=== PATIENT | female | born 1930 | race Caucasian/White ===

== ENCOUNTER 2017-10-23 07:07 | Inpatient (IN) | payer MEDICARE ==
[~2017-10-23] VITALS: Ht 162.6 cm; Wt 94.8 kg
[2017-10-23] VITALS (29 sets, daily range): BP systolic 59–129; BP diastolic 33–63
[~2017-10-23 07:07] MED LIST: ACETAMINOPHEN325 M1 PO; ALBUTEROL2.5 MG/0.5 INH; ALBUTEROL2.5 MG/3 M INH; ALEVE220 MG PO; ALPRAZOLAM; ARTIFICIAL TEAR15 ML OPHTHALMIC; ASPIRIN EC81 M1; ASPIRIN325 PO; BAYER CHEWABLE81 MG PO; BIOFREEZE118 ML TOP; CALCIUM 600 +1 EAC1 PO; CALCIUM 600 +1 EAC9 PO; CARDIZEM CD120 MG PO; CARDIZEM CD180 MG PO; CEFUROXIME250 MG PO; CLEOCIN HCL150 MG PO; COLACE 100 MG100 MG PO; COLACE100 MG PO; CRESTOR10 MG PO; DOXYCYCLINE 10100 MG PO; ENOXAPARIN40 MG/0.1 SUBQ; EUCERIN ORIGIN250 ML TOP; FENTANYL PA25 MCG/HR TRANSDERM; FISH OIL 1,0001 EAC8 PO; FISH OIL 1,001000 M2 PO; FISHOIL; GABAPENTIN 100100 MG PO; GLUCOPHAGE XR500 MG PO; GLUCOPHAGE500 MG PO; GUAIFENESIN-DM S5 ML PO; HYDROCERIN CREA1 JAR TOP; HYDROCODON-ACE1 EAC7 PO; HYDROCODONE-AP1 EAC6 PO; IPRAT-ALBUT 0.5-3 ML INH; JUVEN PACKET1 EACH PO; KLOR-CON 1010 MEQ; LASIX 20 MG TAB20 MG; LEVAQUIN 500 M500 M2 PO; LIDODERM 5%1 PATC1 TRANSDERM; LINZESS145 MCG PO; MACROBID 100 M100 M2 PO; MILK OF MA2400 MG/10 PO; MIRALAX255 GM PO; MOBIC15 MG; MUCINEX TA600 MG/TA2 PO; NEURONTIN 300300 M1 PO; NEURONTIN100 MG PO; NORCO 5-325 TA1 EACH PO; NYAMYC15 GM TOP; NYSTATIN 100,0015 G1 TOP; NYSTATIN 1100000 U/M TOP; ONE DAILY WOME1 EAC3 PO; OSELB75 PO; PERCOCET; POTASSIUM20 PO; PREDNISOLONE 5 M5 M1 PO; PREDNISONE 20 M20 MG PO; PREDNISONE 5 MG5 M1 PO; PREDNISONE 5 MG5 MG PO; PROAIR HFA8.5 GM INH; PROTONIX40 M1 PO; PROTONIX40 M2 PO; RISAMINE OINTM113 GM TOP; ROBAFEN DM COU118 ML PO; ROBITUSSIN100 MG/53 PO; SENNA8.6 MG PO; SENOKOT-S1 TA1 PO; SERTRALINE HCL50 MG PO; SKELAXIN 800 M800 M1 PO; TESSALON PERLE100 M1 PO; THERA-M CAPLET1 EAC1 PO; THERAGRAN-M PR1 EAC1 PO; TRAZODONE 150150 M1 PO; TRAZODONE HCL50 MG PO; Trazodone PO; ULTRAM 50MG TAB50 MG PO; VENTOLIN HFA 1818 GM INH; VICODIN 5-3001 EACH PO; VICODIN 5-5001 EACH PO; VITAMIN D-32000 UNI1 PO; VITAMINC500 PO; XANAX 0.25 MG0.25 MG PO; XARELTO10 M1 PO; ZOLOFT25 MG PO
[2017-10-23 07:37] LABS: POC CA IONIZED 4.4 mg/dL (4.5-5.3); POC CREATININE 2.6 mg/dL (0.6-1.3); POC HEMOGLOBIN 16.3 g/dL (12.0-17.0)
[2017-10-23 07:37] LABS: HEMATOCRIT 49.1 % (37.0-47.0); HEMOGLOBIN 15.5 gm/dL (12.0-15.0); MCH 28.7 pg (26.0-34.0); MCHC 31.5 g/dL (28.0-37.0); MCV 91.2 fL (80.0-100.0); MPV 8.2 fl. (7.2-11.1); RBC 5.38 mil/uL (4.20-5.00); RDW-CV 15.7 % (10.5-14.5); WBC 38.5 thou/uL (4.0-11.0)
[2017-10-23 07:47] LABS: APTT 34.8 Seconds (25.0-31.3); INR 1.3; PROTIME 12.7 Seconds (9.20-11.50)
[2017-10-23 08:01] LABS: CALCIUM 9.1 mg/dL (8.5-10.1); CREATININE 3.3 mg/dL (0.6-1.3); POTASSIUM 3.9 mmol/L (3.5-5.1)
[2017-10-23 08:06] LABS: ALBUMIN 2.8 g/dL (3.4-5.0); TOTAL BILIRUBIN 0.5 mg/dL (<0.1-1.0); TOTAL PROTEIN 7.2 g/dL (6.4-8.2)
[2017-10-23 08:10] LABS: URINE BLOOD 3+ (Negative); URINE CLARITY CLEAR; URINE COLOR YELLOW; URINE GLUCOSE-RANDOM NEGATIVE (Negative); URINE KETONES NEGATIVE (Negative); URINE LEUKOCYTES 3+ (Negative); URINE NITRITE NEGATIVE (Negative); URINE PROTEIN 2+ (Negative); URINE UROBILINOGEN 0.2 E.U./dl (0.2-1.0)
[2017-10-23 08:15] LABS: URINE BILIRUBIN 1+ (Negative)
[2017-10-23 08:16] LABS: ICTOTEST (BILI CONFIRMATORY) Negative (Negative)
[2017-10-23 08:22] LABS: SQUAMOUS 0-3 Few /LPF (0-3)
[2017-10-23 08:23] LABS: BACTERIA >30 Many /HPF (None Seen); CASTS None Seen /LPF (None Seen); CRYSTALS None Seen /LPF (None Seen); MUCUS None Seen strn/LPF (None Seen); URINE RBC >20 Many /HPF (0-2); URINE WBC >25 Many /HPF (0-5)
[2017-10-23 08:27] LABS: PCO2 23.8 mmHg (35.0-45.0); PO2 94.2 mmHg (75.0-100.0); pH 7.322 (7.340-7.450)
[2017-10-23 08:30] LABS: MAGNESIUM 1.6 mg/dL (1.8-2.4); PHOSPHORUS* 4.1 mg/dL (2.5-4.9)
[2017-10-23] MEDS ORDERED: NORCO 5-325 TA1 EACH PO (09:26)
[2017-10-23] MEDS ORDERED: ARTIFICIAL TEA1 EACH OPHTHALMIC (09:30)
[2017-10-23] MEDS ORDERED: THERA-M1 EAC1 PO (09:31)
[2017-10-23] MEDS ORDERED: BUSPIRONE HCL10 MG PO (09:32)
[2017-10-23] MEDS ORDERED: ZOLOFT25 MG PO (09:33)
[2017-10-23] MEDS ORDERED: AMITIZA8 MCG PO (09:33)
--- NOTE | 2017-10-23 10:03 | EKG ---
[place] [address] ELECTROCARDIOGRAM REPORT Name: VIJAYA HELMS Room: [place] [address] ADM IN .R.#: [id number] Admission: 10/23/17 Attend Phys: Bryon Martinez MD Discharge: Date of : [birth year] Report #: [id number] THIS REPORT FOR: //name// [facility] Test Date: 2017-10-23 Test Time: 08:06:17 Pat Name: VIJAYA HELMS Department: Room: [facility] Gender: F Hearing Aid Technician: SCOTT : [id number] Requested By: Valerio Healy Order Number: [id number] MD: Tate Huerta Measurements Intervals [place] Rate: 122 P: 53 LA: 138 QRS: 64 QRSD: 81 T: 84 QT: 304 QTc: 433 Interpretive Statements Sinus tachycardia nonspecific st changes Baseline wander in lead(s) V6 Compared to ECG 06/10/2017 11:06:23 Sinus rhythm no longer present Electronically Signed On 10-23-2017 10:02:48 BALLPOINT PEN ASSEMBLY MACHINE OPERATOR by Tate Huerta [email or web address] <ELECTRONICALLY SIGNED> By: Tate Huerta MD, [facility] 10/23/17 1002 08 08 Tate Huerta MD, [facility] /EPI
--- NOTE | 2017-10-23 10:43 | NUR ---
VANCOMYCIN PHARMACY TO MANAGE: PATIENT IS BEING TREATED FOR SEPSIS. WBC=38.5, SCR=3.3, CRCL (ACTUAL)= 15.9, TEMP= 36.4. PER PROTOCOL PATIENT WILL RECEIVE A LOADING DOSE OF VANCOMYCIN 1.75 G IV ONETIME FOLLOWED BY A MAINTENANCE DOSE OF VANCOMYCIN 500 MG IV DAILY WITH A TROUGH GOAL OF 15-20 MCG/ML. A TROUGH IS ORDERED FOR 10/26 AT 1100. PHARMACY WILL CONTINUE TO FOLLOW AND MONITOR.
[2017-10-23 11:11] LABS: AMYLASE 333 U/L (25-115); LIPASE 169 U/L (73-393)
--- NOTE | 2017-10-23 16:39 | NUR ---
PATIENT ADMITTED FROM ER. PATIENT IMPROVED MENTATION AND SPEECH DURING SHIFT. SPEECH EVAL ORDERED SO PATIENT CAN BE EVALUATED FOR SWALLOWING. PATIENT ON LEVOPHED AND SEPTIC SHOCK PROTOCOL. PATIENT TACHYCARDIC AND TACHYPNEIC. VELEZ CATHETER IN PLACE, DARK URINE NOTED. UTI NOTED ON UA. DECAL MAKER IN PLACE, SINUS TACHYCARDIA WITH FREQUENT PVC'S NOTED. BEDSIDE REPORT TO BE GIVEN TO ONCOMING SHIFT.
[2017-10-24] VITALS (27 sets, daily range): BP systolic 113–142; BP diastolic 46–73
[2017-10-24 03:07] LABS: INR 1.4; PROTIME 13.4 Seconds (9.20-11.50)
[2017-10-24 03:22] LABS: HEMATOCRIT 41.8 % (37.0-47.0); MCH 28.6 pg (26.0-34.0); MCHC 31.9 g/dL (28.0-37.0); MCV 89.6 fL (80.0-100.0); MPV 8.8 fl. (7.2-11.1); NUCLEATED RBCS 0 /100WBC; PLATELET COUNT* 134 thou/uL (150-400); RBC 4.66 mil/uL (4.20-5.00); RDW-CV 15.4 % (10.5-14.5)
[2017-10-24 03:23] LABS: HEMOGLOBIN 13.3 gm/dL (12.0-15.0)
[2017-10-24 03:24] LABS: WBC 40.8 thou/uL (4.0-11.0)
[2017-10-24 03:31] LABS: CREATININE 2.8 mg/dL (0.6-1.3); MAGNESIUM 1.9 mg/dL (1.8-2.4); PHOSPHORUS* 6.1 mg/dL (2.5-4.9); POTASSIUM 4.2 mmol/L (3.5-5.1)
[2017-10-24 03:40] LABS: CALCIUM 6.2 mg/dL (8.5-10.1)
[2017-10-24 04:18] LABS: ABSOLUTE EOSINOPHILS 0.4 thou/uL (0.0-0.7); ABSOLUTE LYMPHOCYTES 1.6 thou/uL (0.8-5.3); ABSOLUTE MONOCYTES 1.2 thou/uL (0.0-1.2); ABSOLUTE NEUTROPHILS 37.5 thou/uL (1.6-8.1); ANISOCYTOSIS Occasional; METAMYELOCYTES 2 %; PLATELET ESTIMATE DECREASED
[2017-10-24 04:19] LABS: TOXIC GRANULATION 1+
--- NOTE | 2017-10-24 05:34 | NUR ---
PT IS ABLE TO COMMUNICATE HER NEEDS TO STAFF WITH SOME DIFFICULTY; SHE HAS BEEN DROWSEY AND HAS SOME RIGHT SIDED FACIAL DROOP WELL SLURRED SPEECH. SHE HAS BEEN FOLLOWING COMMANDS UP TO THIS TIME; GCS=14. LEVOPHED DRIP TITRATED DOWN OVERNIGHT, BUT STILL RUNNING AT THIS TIME. VELEZ PATENT; ACCEPTABLE OUTPUT SO FAR.
--- NOTE | 2017-10-24 08:54 | CON ---
[address] [address] CONSULTATION Name: VIJYAA HELMS Bianca Room: [address] ADM IN M.R.#: [id number] Admission: 10/23/17 Attend Phys: Bryon Martinez MD Discharge: Date of : 08/[birth year] Report #: [id number] THIS REPORT FOR: //name// CC: Bryon Hennessy DATE OF SERVICE: 10/23/2017 ATTENDING PHYSICIAN: Dr. Martinez. REASON FOR EVALUATION: Septic shock, probable complicated genitourinary tract infection. HISTORY OF PRESENT ILLNESS: Chart reviewed, patient examined. This is an 87-year-old, extensive medical history, I am very familiar with. She was hospitalized in May of this year, was readmitted from the [place] [facility] with mental status changes, was evaluated and was found to have marked pyuria, probable urinary tract infection, perhaps pneumonitis as well. She was transitioned to the Intensive Care Unit. It is notable she had a marked lactic acidemia of 14.4, renal failure, markedly elevated white count of 38.5. She has been febrile, currently on pressor support. She is empirically started on combination of antimicrobials with vancomycin, metronidazole, meropenem. ALLERGIES: LISTED PENICILLIN, SULFA, CEPHALOSPORINS, QUINOLONES. MEDICATIONS: Include vancomycin, meropenem, methylprednisolone, metronidazole, norepinephrine. PAST MEDICAL HISTORY: Extensive including known vasculopathy, coronary artery disease, asthma, hypertension, renal lithiasis with lithotripsies, rheumatic fever at the age of 11, multiple surgeries including hernia, tonsillectomy, colectomy, cholecystectomy, hysterectomy and some infectious complications including pneumonitis, urinary tract infections. SOCIAL HISTORY: She is disabled, [place] [facility] resident, nonsmoker, no ethanol. FAMILY HISTORY: Noncontributory. REVIEW OF SYSTEMS: Not obtainable. PHYSICAL EXAMINATION: GENERAL: She appears quite ill, ilkld-sb-gfuqxel, undernourished. It is unclear that she has any ability to track conversation and exactly where she is at. VITAL SIGNS: Temperature 100.9, pulse 116, respirations 33, blood pressure 103/44 [place] [address] CONSULTATION Name: VIJAYA HELMS Room: [address] IN [facility]#: [id number] Admission: 10/23/17 Attend Phys: Bryon Martinez MD Discharge: Date of : 08/[birth year] Report #: [id number] SKIN: Warm, dry, no rashes. HEENT: Unremarkable. NECK: Supple. LUNGS: Scattered coarse breath sounds. HEART: Tachycardic, regular, may have a soft systolic murmur. ABDOMEN: Soft. There are no apparent peritoneal signs. GENITOURINARY AND RECTAL: Deferred. LABORATORY DATA: Renal ultrasound showed no hydronephrosis or obstruction. Lactic acid serially 14.4, 9.8 and 9.1. Amylase 333 with upper limits normal being 115, lipase of 169. Chest x-ray: Prominent interstitial changes throughout both lungs. ABGs: A pH 7.322, pCO2 of 23.8, pO2 of 94.2 on 15 liters nonrebreather. Urinalysis: Greater than 25 white cells, greater than 30 bacteria. Cultures are pending on the blood and urine. CTA head: Chronic age-related changes similar to previous. No definite acute intracranial process. White count of 38.5, H and H 15.5 and 49.1, platelets of 169. ASSESSMENT: Septic shock, setting of a [place] [facility], likely secondary to genitourinary tract source, can exclude a concomitant pneumonitis as well. We will continue broad spectrum therapy and again this regimen is based in part on likely organisms as well as multiple drug hypersensitivities. At this point, she is quite tenuous although apparently is not to be intubated or resuscitated. See how she does clinically with the current approach. She has certainly had significant guarded prognosis. <ELECTRONICALLY SIGNED> By: Rhys Hill MD 10/24/17 0854 1519 [id number] Hill MD /nt
--- NOTE | 2017-10-24 10:15 | NUR ---
PT ADMITTED TO ICU YESTERDAY. DAUGHTER ANTONY NOT IN THE ROOM AT THIS TIME, I SPOKE WITH DTR YESTERDAY AT TIME OF ADMISSION. DTR TEARFUL, STATING SHE ISN'T SURE WHAT SHE SHOULD DO. 'MY MOTHER IS READY TO , SHE DOESN'T HAVE MUCH OF A QUALITY OF LIFE.' CONFIRMED WITH DTR THAT PT IS A DNR, DTR CONFLICTED ABOUT WHETHER SHE SHOULD HAVE LET THE DOCTOR START THE PRESSORS, 'MAYBE I SHOULD JUST LET HER GO.' AFTER DISCUSSION WITH DTR, SHE HAS DECIDED THAT SHE WANTS TO CONTINUE CURRENT TREATMENT FOR NOW, SEE HOW PT RESPONDS, AND THEN MAKE FURTHER DECISIONS ABOUT WHAT SHE WANTS DONE OR DOESN'T WANT DONE. DTR IS REALISTIC ABOUT PT'S CONDITION. DTR HAS MY CONTACT INFORMATION, CASE MGT WILL CONTINUE TO FOLLOW.
--- NOTE | 2017-10-24 10:37 | CON ---
[address] [address] CONSULTATION Name: VIJAYA HELMS Bianca Room: [address] IN M.R.#: [id number] Admission: 10/23/17 Attend Phys: Bryon Martinez MD Discharge: Date of : [birth year] Report #: [id number] THIS REPORT FOR: //name// CC: Bryon Martinez MD Boy Hennessy DATE OF SERVICE: 10/23/2017 REQUESTING PHYSICIAN: Bryon Martinez MD REASON FOR CONSULTATION: Acute renal failure. HISTORY OF PRESENT ILLNESS: The patient is an 87-year-old woman who presented to the emergency room from correction with altered mental status, she was hypotensive, has been deemed probably septic, was moved to the intensive care unit, started on pressors and given IV fluid resuscitation, her creatinine was elevated over 3, so we were asked to see her in consultation. The patient provides no meaningful history to me, history is from review of the emergency room runner. PAST MEDICAL HISTORY: Known to be significant for coronary artery disease, bypass surgery, she has had cervical neck fracture, she has had lithotripsies in the past, rheumatic fever as a child, hernia repair, hyperlipidemia and previous hip fracture in 2013. MEDICATIONS AT HOME: Include hydrocodone, acetaminophen, fentanyl patch, aspirin, albuterol, multivitamins, nystatin, prednisone 5 mg daily, magnesium hydroxide, lanolin, menthol, trazodone, gabapentin, Dendron, Zoloft, diltiazem, Amitiza, and Senna. FAMILY HISTORY: Noncontributory. SOCIAL HISTORY: Not available. REVIEW OF SYSTEMS: Unobtainable. PHYSICAL EXAMINATION: VITAL SIGNS: Temperature is 36.4, pulse 118, respirations 24, and blood pressure 76/37. GENERAL: This is an elderly white female, minimally responsive to me, in no acute distress, lying in the intensive care unit on nasal oxygen flat on her back. HEAD, EYES, EARS, NOSE, AND THROAT: Normocephalic. Sclerae are nonicteric. NECK: No JVD is noted. HEART: Regular rhythm and rate about 100[place] [address] CONSULTATION Name: VIJAYA HELMS Room: [address] IN [facility].#: [id number] Admission: 10/23/17 Attend Phys: Bryon Martinez MD Discharge: Date of : [birth year] Report #: [id number] LUNGS: Clear anteriorly. ABDOMEN: Soft, rotund, bowel sounds are present. Tender to palpation throughout, but no apparent rebound or guarding. She has a Blair catheter in place with bloody thick urine. EXTREMITIES: Show no peripheral edema. SKIN: Turgor is diminished. LABORATORY DATA: Reviewed, noted white count 38.5, hemoglobin 15.5, and platelet count 169,000. Sodium 146, potassium 3.9, chloride 103, CO2 of 18, BUN 32, creatinine 3.3, and albumin is 2.8. IMPRESSION AND PLAN: Acute renal failure in the setting of hypotension and probable sepsis. We will fluid resuscitate her more aggressively. Continue pressor support. If she does take steroids chronically, I would favor putting her on IV Solu-Medrol here as well. We will monitor her progress with followup chemistries later this afternoon and again in the morning. Depending on her course, she may require acute dialysis she is a do not intubate, do not resuscitate status, I do not know about other aggressive medical interventions in this 87-year-old woman. I have asked for renal ultrasound to be done as well. She is on empiric antibiotics. We will follow along closely with you. Thank you very much for asking me to see the patient in consultation. <ELECTRONICALLY SIGNED> By: Adalgisa Hopkins MD 10/24/17 1037 1130 [id number] Moreno MD /nt
--- NOTE | 2017-10-24 11:27 | NUR ---
1030 PATIENT CARE TRANSFERRED TO RISHI GRIMES. REPORT GIVEN. FAMILY INFORMED OF CARE TRANSFER
--- NOTE | 2017-10-24 14:11 | NUR ---
Nutrition: assessed for dx of severe sepsis. Other dx: YOLANDA, possible aspiration. Pt admit yesterday, NPO and awaiting FURNITURE DUSTER eval. Wound on sacrum, unstaged. Na, Cl, phos and RFT's elevated; Albumin low. Solumedrol and other meds reviewed. Wt stable from prior admit RD notes, UBW was reported 190 lb. Currently appears at low nutrition risk but await, FURNITURE DUSTER eval, diet and intake. Will need to be reassessed early next week; recommend f/u by 10/29/17.
[2017-10-24 15:11] LABS: HEPATITIS B SURFACE AG Negative (Negative)
--- NOTE | 2017-10-24 18:46 | NUR ---
RECEIVED REPORT FROM RISHI WILBURN. ASSESSMENTS CHARTED. AFEBRILE. PT STILL ON LEVO. 8L HIGH FLOW NC. ADEQUATE URINE OUTPUT. STARTED SLIDING SCALE INSULIN. PT IS STILL LETHARGIC. SLURRED SPEECH. FAMILY DOES NOT WISH TO RESTART PRESSORS ONCE TITRATED OFF. FAMILY UPDATED ON PLAN OF CARE.
[2017-10-25] VITALS (7 sets, daily range): BP systolic 115–156; BP diastolic 56–78
[2017-10-25 04:21] LABS: HEMOGLOBIN 12.3 gm/dL (12.0-15.0); MCH 28.8 pg (26.0-34.0); MCHC 32.4 g/dL (28.0-37.0); MPV 8.8 fl. (7.2-11.1); RBC 4.27 mil/uL (4.20-5.00); RDW-CV 15.9 % (10.5-14.5)
[2017-10-25 04:24] LABS: WBC 21.3 thou/uL (4.0-11.0)
[2017-10-25 04:52] LABS: CREATININE 1.7 mg/dL (0.6-1.3); POTASSIUM 2.9 mmol/L (3.5-5.1)
--- NOTE | 2017-10-25 06:00 | NUR ---
PROGRESSING TOWARDS GOALS, AWAKE, ALERT, AND CONVERSATIVE AT TIMES, LEVOPHED STOPPED AT 0400, B/P MAP STABLE WITH MAP =>65, FREQUENT ORAL CARE PROVIDED, INCONTINENT STOOL, PERICARE PROVIDED, BARRIER CREAM APPLIED, OXYGEN INCREASED DURING NOC FOR SAO2 DECREASE 86%, NRB MASK TO OBTAIN SAO2 >90%, ABLE TO TRANSITION BACK TO HIGHFLOW NC 13 LITERS AT 0300, TITRATED DOWN TO 9L HF THIS AM, LACTIC ACID TRENDING DOWN TO 2.3 THIS AM. AWAITING POTASSIUM 40MEQ IVPB TO FROM PHARMACY TO INFUSE PER ORDER FOR POTASSIUM LEVEL 2.9, NS AND D5W 2AMPS BICARB DCD PER ORDER, INITIATED 0.45% NS AT 100CC/HR PER ORDER, FEVER DECREASED TO WNL 98.6 CORE TEMP THIS AM.
--- NOTE | 2017-10-25 11:58 | NUR ---
SPOKE WITH PT AND DTR EARLIER, PT AWAKE AND ALERT AND CARRYING ON A CONVERSATION WITH HER DTR. PT SAID SHE DIDN'T KNOW WHY SHE WAS STILL HERE, 'I AM READY TO GO BUT I GUESS IT ISN'T MY TIME YET.' SPOKE WITH DTR OUTSIDE THE ROOM. DTR SAYS THAT PT HAS BEEN READY TO FOR SOME TIME, DTR STILL QUESTIONING IF SHE SHOULD HAVE EVEN HAD PT SENT TO THE HOSPITAL THIS TIME. DISCUSSED WITH DTR THE OPTION OF HOSPICE WHEN PT RETURNS TO THE [facility], EXPLAINED WHAT HOSPICE SERVICES ARE, TO GIVE PT THE BEST QUALITY OF LIFE FOR HOWEVER LONG SHE HAS, BUT IF SHE WERE TO GET REALLY BAD AGAIN, THE [facility] WOULD CALL HOSPICE, RATHER THAN CALL 911. HOSPICE GOAL WOULD BE TO NOT HAVE PT ADMITTED TO THE HOSPITAL. DTR SAID THAT IS WHAT PT WOULD WANT. DTR DOES WANT TO CONTINUE CARE WHILE PT IS HERE, PT IS A DNR AND DTR WOULD NOT WANT PRESSORS STARTED AGAIN. DTR WILL TALK WITH [facility] ABOUT HOSPICE WHEN PT RETURNS. CALLED [facility] AND SPOKE WITH AVIVA TO UPDATE HER ON PT'S CONDITION. PT IS IN A SEMI-PRIVATE ROOM WITH A ROOMMATE AND PT NOW HAS C-DIFF. AVIVA SAID THEY WILL TAKE PT BACK WHEN READY FOR DISCHARGE BUT THEY WILL NEED TO FIGURE OUT WHAT ROOM PLACEMENT OPTIONS THEY HAVE. ALSO NOTIFIED AVIVA THAT DTR IS INTERESTED IN HOSPICE WHEN PT RETURNS.
--- NOTE | 2017-10-25 16:05 | NUR ---
RECEIVED PT FROM RISHI MOJICA. ASSESSMENTS CHARTED. AFEBRILE. PT PROGRESSING TOWARDS GOALS. TELE STATUS. VITALS STABLE. 9L HIGH FLOW. SPEECH EVAL DONE AND PT IS DRINKING WATER BUT REFUSES TO EAT AT THIS POINT. FAMILY UPDATED ON PLAN OF CARE.
--- NOTE | 2017-10-25 19:00 | NUR ---
RECEIVED REPORT FROM SUPERVISOR FARM EQUIPMENT MAINTENANCE. PT ARRIVED TO UNIT AT 1845 VIA BED AND NURSING STAFF. AGREE WITH ASSESSMENT PREVIOUSLY ENTERED TODAY. CALL LIGHT IN REACH. CASH REGISTER SERVICER APPLIED.
[2017-10-26] VITALS: BP 137/52
--- NOTE | 2017-10-26 01:00 | NUR ---
DENIES COMPLAINTS OF PAIN OR DISCOMFORT. FECAL TUBE, AND VELEZ CATH. TURN EVERY 2 HOURS. DENIES PAIN OR DISCOMFORT. THIN LIQ, AND MECH SOFT DIET. NO SIGN OF DISTRESS, CONT. WITH CURRENT PLAN OF CARE AT THIS TIME.
[2017-10-26 04:00] VITALS: BP 155/70
[2017-10-26 04:51] LABS: HEMATOCRIT 37.6 % (37.0-47.0); HEMOGLOBIN 12.1 gm/dL (12.0-15.0); MCH 28.8 pg (26.0-34.0); MCHC 32.3 g/dL (28.0-37.0); MCV 89.1 fL (80.0-100.0); MPV 9.1 fl. (7.2-11.1); RBC 4.22 mil/uL (4.20-5.00); RDW-CV 16.1 % (10.5-14.5); WBC 19.2 thou/uL (4.0-11.0)
[2017-10-26 05:03] LABS: CALCIUM 6.6 mg/dL (8.5-10.1); CREATININE 1.2 mg/dL (0.6-1.3)
[2017-10-26 05:15] LABS: POTASSIUM 2.8 mmol/L (3.5-5.1)
--- NOTE | 2017-10-26 05:17 | NUR ---
POTASSIUM 2.8, ON REPLACEMENT PROTOCAL WITH GIVE.
[2017-10-26 09:00] VITALS: BP 151/82
[2017-10-26 11:46] VITALS: BP 147/67
--- NOTE | 2017-10-26 13:57 | NUR ---
ASKED TO SPEAK WITH PT.AND DAUGHTER,ANTONY,BY NURSING. PT.IS ALERT AND ORIENTED. DAUGHTER,SUPPORTIVE. PT.STATES I'VE BEEN THROUGH SO MUCH. I'M TIRED AND I JUST HAVE TO GO. DEMETRIO DELUCARN, PT.HAS BEEN REFUSING MEDS TODAY. ANTONY SAID WE JUST WANT HER TO BE COMFORTABLE. PT.LIVES AT [facility]. PT.WOULD LIKE [facility]. THEY WOULD ALSO LIKE GIP WITH [facility] IF PT.WOULD QUALIFY. AWAITING RESPONSE FROM TO ORDER COMFORT CARE.
--- NOTE | 2017-10-26 17:25 | NUR ---
INFORMED DR.FULBRIGHT FINE THAT PT.AND DAUGHTER REQUEST COMFORT CARE. HE SAID SHE IS PT. 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 HE SAID OK. SO FAR NO ORDER FOR COMFORT CARE.
[2017-10-26 17:33] VITALS: BP 139/75
--- NOTE | 2017-10-26 19:00 | NUR ---
RECEIVED REPORT. ASSUMED CARE OF PT AT 0730. VSS. O2 >90% ON 8L HIGH FLOW NC. PT A&0 X4, WITH SOME FORGETFULLNESS. BODY HANGER IN PLACE TRACING SR WITH PAC'S AND PVC'S. RIGHT IJ TRIPLE LUMEN PATENT AND INFUSING, OTHER TWO LUMENS SALINE LOCKED. PT DENIES PAIN OR DISCOMFORT AT THIS TIME. AM ASSESSMENT AND VITALS COMPLETED CHARTED. PT'S DAUGHTER WHO IS THE DPOA AT BEDSIDE. PT AND DPOA WANT TO PURSUE COMFORT CARE - REFUSING ALL MEDICATIONS AND TREATMENTS. TALKED WITH PT AND DAUGHTER ABOUT SITUATION AND BOTH ARE IN AGREEMENT TO PURSUE PALLIATIVE CARE. PT AND DPOA TEARFUL. PROVIDED COMFORT AND REASSURANCE. HELD MEDICATIONS. DPOA STATED TO HAVE BLOOD GLUCOSE CHECKS DISCONTINUED WELL, PT IS NOT DIABETIC AND WILL NO LONGER BE RECEIVING STEROIDS. NOTIFIED OF PT AND FAMILY'S WISHES - ORDERS RECEIVED FOR COMFORT MEDS. PT REPORTED BACK AND STOMACH PAIN LATER IN THE SHIFT AND RECEIVED MORPHINE WITH RELIEF. DAUGHTER HAS BEEN AT BEDSIDE THROUGHOUT THE SHIFT. PT HAS CONTINUED TO REMAIN A&0 X4 AND IS CONFIDENT IN COMFORT CARE DECISION, STATING "I WAS READY THREE DAYS AGO." PT TURNED Q2HRS FOR COMFORT AND TO OFF LOAD BOTTOM. OPTIFOAM DRESSING APPLIED TO PRESSURE SORE ON PT'S SACRUM. VELEZ AND FECAL TUBE REMAIN IN PLACE, BOTH DRAINING DEPENDENTLY. PT HAS NO APPETITE AND HAS ONLY WANTED WATER AND HOT TEA THIS SHIFT. COMFORT CART PROVIDED. FALL PRECAUTIONS IN PLACE. JOSEPH GIVEN FOR CALL LIGHT - PT UNABLE TO PUSH CALL LIGHT BUTTON. PT ABLE TO USE JOSEPH. HOURLY ROUNDING PERFORMED.
[2017-10-26 20:00] VITALS: BP 134/68
--- NOTE | 2017-10-27 03:44 | NUR ---
PT SLEEPING WITH DTR IN ROOM. MORPHINE GIVEN FOR PAIN. PT REFUSING BLOOD SUGARS AND MEDS. SHIFT CHG WOUND ON SACRAL NOTED. CLEANED WITH NS AND DRSG APPLIED. FLEXISEAL IN PLACE DRAINING LIQUID. VELEZ WITH YELLOW. ON COMFORT CARE. WILL CONTINUE TO MONITOR AND ASSESS.
[2017-10-27 08:00] VITALS: BP 143/67
--- NOTE | 2017-10-27 08:30 | NUR ---
RECEIVED REPORT. ASSUMED CARE OF PT AT 0730. PT A&O X4. VSS. O2 >90% ON 8L PER NC. ASSEMBLER LIQUID CENTER IN PLACE TRACING SR WITH PAC'S AND PVC'S. AM ASSESSMENT AND VITALS COMPLETED CHARTED. RIGHT IJ TRIPLE LUMEN SALINE LOCKED. VELEZ AND FLEXISEAL IN PLACE AND DRAINING DEPENDENTLY. COMFORT CARE. PT REMAINS CONFIDENT IN DECISION FOR COMFORT CARE. PT REFUSING BREAKFAST AND MEDICATIONS THIS AM. PT ALSO REFUSED LAB DRAW THIS AM. PT ASKING FOR WATER FREQUENTLY. PT DRINKING WITHOUT ISSUE, BUT NEEDS ASSISTANCE HOLDING THE WATER CUP. PT STATES DAUGHTER LEFT TO GO TO RELIGIOUS. DRESSING TO SACRUM CDI. PT REPOSITIONED TO OFF-LOAD BOTTOM. FALL PRECAUTIONS ARE IN PLACE. SOFT TOUCH CALL LIGHT AND JOSEPH ARE WITHIN REACH. WILL CONTINUE TO CLOSELY MONITOR.
--- NOTE | 2017-10-27 08:40 | NUR ---
PT DENIES PAIN OR DISCOMFORT AT THIS TIME. ONLY WANTS WATER. WATER GIVEN. SOFT TOUCH CALL LIGHT AND JOSEPH WITHIN REACH. ISOLATION PRECAUTIONS MAINTAINED. FALL PRECAUTIONS IN PLACE. WILL CONTINUE TO MONITOR.
[2017-10-27 12:15] VITALS: BP 148/77
[2017-10-27 15:45] VITALS: BP 112/64
--- NOTE | 2017-10-27 19:30 | NUR ---
PT CONTINUES TO BE A&OX4. VSS. O2 SAT REMAINS >90% ON 8L PER NC. IV SALINE LOCKED. TELEPHONE ANSWERER REMAINS IN PLACE WITH NO CHANGES THIS SHIFT. VELEZ IN PLACE DRAINING YELLOW URINE. FLEXISEAL IN PLACE DRAINING LIQUID STOOL, MINIMAL OUTPUT. PT REPORTED PAIN IN RECTUM LATER IN THE SHIFT AND RECEIVED IV PAIN MEDICATION WITH PARTIAL RELIEF. SEE EMAR FOR DOCUMENTATION AND REASSESSMENT OF PAIN MEDS. PT TURNED Q2HRS FOR COMFORT. DRESSING TO SACRUM CHANGED. DRESSING APPLIED TO ABRASION WOUND ON RIGHT OUTER CALF. PT HAS CONTINUED TO REFUSE MEDICATIONS (OTHER THAN FOR PAIN) AND BLOOD SUGAR CHECKS. PT HAS WANTED ONLY WATER AND CHOCOLATE ICE CREAM THIS SHIFT. ASSISTED PT TO DRINK WATER EVERY HOUR, PT NEEDED. PT REQUESTED THIS RN CONTACT HER DAUGHTER TO SEE IF SHE WAS COMING BACK TO VISIT THIS AFTERNOON. CALLED DAUGHTER TWICE AND WAS FINALLY ABLE TO SPEAK WITH HER THIS EVENING. DAUGHTER REPORTED THAT SHE WOULD BE HERE TO VISIT FIRST THING IN THE MORNING BUT NOT TONIGHT, STATING SHE DIDN'T "WANT TO BE OUT ON ". PT EXPRESSED FRUSTRATION OVER THIS AND WAS ALSO TEARFUL. PROVIDED THERAPEUTIC COMMUNICATION AND REASSURANCE. SOFT TOUCH CALL LIGHT AND JOSEPH WITHIN REACH. FALL PRECAUTIONS IN PLACE. ISOLATION PRECAUTIONS MAINTAINED. HOURLY ROUNDING PERFORMED.
--- NOTE | 2017-10-28 05:23 | NUR ---
PT CARE ASSUMED AFTER REPORT. ASSESSMENT COMPLETE. SR/1ST DEGREE/PAC/PVC ON MONITOR. CONTINUED COMFORT CARE. PRN PAIN MEDICATION GIVEN PER PT REQUEST. WATER GIVEN FREQUENTLY PER PT REQUEST. VELEZ TO DD. FLEXI-SEAL IN PLACE AND DRIANING. RIJ FLUSHES WELL. PT REFUSED AM LABS. DRESSING TO PRESSURE WOUND ON PT BOTTOM AND WOUND TO RLE DRESSINGS C/D/I. CONTACT PRECAUTIONS IN PLACE. CALL LIGHT IN REACH. SOFT TOUCH CALL LIGHT ALSO IN REACH. PT ALSO HAS A JOSEPH ON BEDSIDE TABLE TO REQUEST ASSISTANCE. BED IN LOWEST POSITION. NOT PROGRESSING TOWARDS GOALS.
[2017-10-28 08:00] VITALS: BP 157/66
--- NOTE | 2017-10-28 11:00 | NUR ---
RECEIVED REPORT. ASSUMED CARE OF PT AT 0730. PT A&OX4. VSS. O2 SAT 91% ON 8L PER NC. VOLUNTEER RECRUITMENT COORDINATOR IN PLACE TRACING ST WITH PVC'S. AM ASSESSMENT AND VITALS COMPLETED CHARTED. RIJ FLUSHES WELL, SALINE LOCKED. PT STATES "I'M HURTING ALL OVER." RECEIVED IV PAIN MEDICATION WITH RELIEF. SEE EMAR FOR ADMINISTRATION AND REASSESSMENT OF PAIN MEDS. DRESSING TO SACRUM AND RIGHT LATERAL CALF CDI. VELEZ AND FLEXISEAL INTACT AND DRAINING. PT CONTINUING TO REFUSE MEDS/LABS/BLOOD SUGRAS. COMFORT CARE. PT INFORMED OF PLAN OF CARE- PT STATES SHE DOES NOT WANT TO RETURN TO THE [place]. CASE MANAGEMENT WILL SEE TOMORROW. DAUGHTER (DPOA) AT BEDSIDE. PT ASKING FOR AND RECEIVING WATER FREQUENTLY, DRINKING WITHOUT ISSUE. PT DISPLAYING POOR APPETITE AND IS REFUSING MEALS. ISOLATION MAINTAINED. FALL PRECAUTIONS IN PLACE. SOFT TOUCH CALL LIGHT AND JOSEPH WITHIN REACH. WILL CONTINUE TO MONITOR.
--- NOTE | 2017-10-28 19:11 | NUR ---
VSS. PT REMAINS ALERT AND ORIENTED X4. O2 >90% ON 8L PER NC. SENIOR WEB SERVICES DEVELOPER REMAINS IN PLACE WITH NO CHANGES THIS SHIFT. COMFORT CARES PERFORMED. RIJ CONTINUING TO FLUSH WELL. PT CONTINUING TO ASK FOR WATER FREQUENTLY AND HAS RECEIVED IT; SWALLOWING WITHOUT ISSUE. DAUGHTER HAS REMAINED AT BEDSIDE THROUGHOUT THE SHIFT. VELEZ TO DD WITH YELLOW URINE. FLEXISEAL IN PLACE WITH MINIMAL DRAINAGE. DRESSING TO SACRUM AND RIGHT OUTER CALF CHANGED. PICTURES IN THE CHART. PT COMPLAINED OF GENERALIZED PAIN OFF AND ON THROUGHOUT THE SHIFT AND RECEIVED IV PAIN MEDICATION WITH RELIEF. PT CONTINUING TO REFUSE MEDS/LABS/BLOOD SUGAR CHECKS. PT DID EAT HALF OF A SHERBERT CUP. PT NOT PROGRESSING TOWARDS GOALS. PT TURNED [id number]. ISOLATION MAINTAINED. JOSEPH AND SOFT TOUCH CALL LIGHT IS WITHIN REACH. HOURLY ROUNDING PERFORMED.
--- NOTE | 2017-10-29 05:00 | NUR ---
PT CARE ASSUMED AFTER REPORT. ASSESSMENT COMPLETE. SR/PVC/PAC ON MONITOR. RIJ FLUSHES WELL. PRN PAIN MEDICATION GIVEN PER PT REQUEST. DAUGHTER AT BEDSIDE THROUGH THE NIGHT. VELEZ TO DD. FLEXI SEAL IN PLACE WITH MINIMAL OUTPUT. O2 8L HFC. SPECIAL PRECAUTIONS IN PLACE FOR CDIFF. DRESSINGS TO RLE AND BOTTOM C/D/I. PT ON COMFORT CARE. INCREASED WEAKNESS. FALL PRECAUTIONS IN PLACE INCLUDING BED ALARM. CALL LIGHT, SOFT TOUCH LIGHT, AND JOSEPH IN PT REACH. BED IN LOWEST POSITION. NOT PROGRESSING TOWARDS GOALS.
--- NOTE | 2017-10-29 10:57 | NUR ---
Spoke with dtr regarding disposition. Plan is for Pt to return to [facility] with [facility]. aerial photogrammetrist to meet with dtr today between 12-. Waiting to hear back to [facility] regarding bed availability, Pt will need a private room d/t cdiff dx. Faxed referral info to [facility]. Pt should be ready to dc back to [facility] today, if room is available. Following.
--- NOTE | 2017-10-29 13:36 | NUR ---
ASSUMED PT CARE AT 0700 PT IS AWAKE AND ALERT PT IS A FALL RISK BED ALARM IS ON PT HAS VELEZ AND FECAL TUBE PT HAS WOUND ON SACRUM AND HAS DIARRHEA, PT IS NON AMBULATORY PT IS ON COMFORT CARE AWAITING A ROOM AT [facility] FOR ISOLATION [facility] WILL SEE PT TODAY, PT REFUSES MEDICATIONS EXCEPT FOR PAIN MEDS WHICH THIS NURSE GAVE FOR PAIN. PT IS TURNED Q 2 HOURS, WILL CONTINUE TO MONITOR
[2017-10-29 20:00] VITALS: BP 150/68
[2017-10-30] VITALS: BP 101/41
--- NOTE | 2017-10-30 03:16 | NUR ---
ASSUMED CARE OF PATIENT AT 2029 RECEIVED REPORT FROM STEPHANI BLACKWELL THE PATIENT REMAINS SR WITH PVC'S ON THE MONITOR O2 SAT MAINTAINED ON 8L NC CONTINUES BEDREST CONTINUES TO PROGRESS TOWARDS GOALS COMFORT MEASURES CONTINUE THE PRN REGIMEN CONTINUES TO BE EFFECTIVE FOR SX MANAGEMENT OF PAIN THE PATIENT CONTINUES TO REFUSE ALL OTHER MEDICATIONS SAFETY INTERVENTIONS CONTINUE BED LOWERED WHEELS LOCKED CALL LIGHT IN REACH SIDE RAILS UP REPORT TO BE GIVEN TO MARIA ESTHER BLACKWELL
[2017-10-30 04:00] VITALS: BP 136/75
--- NOTE | 2017-10-30 05:35 | NUR ---
PATIENT AND FAMILY AT BEDSIDE DECLINED ROUTINE MEDICATIONS DECLINED AM SCHEDULED LABS
[2017-10-30 08:00] VITALS: BP 159/68
--- NOTE | 2017-10-30 09:26 | NUR ---
Pt discharging back to [facility] today with [facility]. Updated Ronda at [facility] of disposition. Faxed dc orders. Chart copied. Nurse report number provided. Updated Pt's dtr in room.
--- NOTE | 2017-10-30 09:30 | NUR ---
RECEIVED REPORT. ASSUMED CARE OF PT AT O730. VSS. O2 SAT 95% 6L PER NC. CARDIAC MONITOIR IN PLACE TRACING SR WITH PAC'S. AM ASSESSMENT AND VITALS COMPLETED CHATED. RIJ FLUSHING WELL. PT DENIES PAIN OR DISCOMFORT AT THIS TIME. DRESSING TO RIGHT OUTER CALF AND SACRUM CDI. PT ASKING FOR AND RECEIVING LOTS OF WATER. PT REFUSING LABS/MEDS/AND FOOD. DAUGHTER AT BEDSIDE. PT BEING TURNED Q2HRS. VELEZ AND FLEXISEAL IN PLACE AND DRAINING. FALL PRECAUTIONS IN PLACE. ISOLATION MAINTAINED. WILL CONTINUE TO MONITOR.
[2017-10-30] MEDS ORDERED: PROTONIX40 M1 PO (09:58)
[2017-10-30] MEDS ORDERED: PHENERGAN12.5 M2 PO (09:58)
[2017-10-30] MEDS ORDERED: TYLENOL325 MG PO (09:59)
[2017-10-30] MEDS ORDERED: ONDANSETRON HCL4 M2 PO (10:00)
[2017-10-30] MEDS ORDERED: ZOFRAN ODT4 MG DISSOLVE (10:01)
[2017-10-30] MEDS ORDERED: MSL20MG/ML PO (10:03)
[2017-10-30] MEDS ORDERED: MAG-AL PLUS SUS30 ML PO (10:06)
[2017-10-30] MEDS ORDERED: MORPHINE SULFAT10 MG IV PUSH (10:06)
[2017-10-30] MEDS ORDERED: COMPAZINE25 MG RECTAL (10:08)
[2017-10-30] MEDS ORDERED: FENTANYL 0.50 MCG/ML IV PUSH (10:09)
[2017-10-30] MEDS ORDERED: FLEET ENEMA133 ML RECTAL (10:10)
[2017-10-30] MEDS ORDERED: HALDOL 0.5 MG0.5 MG PO (10:11)
[2017-10-30] MEDS ORDERED: ADULT SUPPOSIT1 EACH RECTAL (10:11)
[2017-10-30] MEDS ORDERED: ATROPINE 0.01%-10 ML OPHTHALMIC (10:14)
[2017-10-30] MEDS ORDERED: ATIVAN0.5 MG PO (10:15)
[2017-10-30] MEDS ORDERED: FEVERALL650 MG RECTAL (10:16)
[2017-10-30 10:19] VITALS: BP 159/68
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
--- NOTE | 2017-10-30 12:52 | NUR ---
DISCHARGE ORDERS RECIEVED, PT RETURNING TO [facility]. REPORT CALLED TO KRISTINA. DISCHARGE COMPLETED CHARTED. DISCHARGE SUMMARY AND EDUCATION GONE OVER WITH PT AND DAUGHTER, BOTH COMMUNICATE UNDERSTANDING. RIJ REMOVED. ALL BELONINGS GATHERED AND SENT WITH THE PT'S DAUGHTER. VELEZ AND FLEXISEAL REMAINED IN PLACE FOR CARE AT [facility]. SCRIPTS FOR ATIVAN AND MORPHINE IN TRANSFER ENVELOPE. TRANSFER ENVELOPE SENT WITH EMS. PT TRANSFERED TO THE [facility] VIA EMS STRETCHER WITH DAUGHTER. PT VSS AT TIME OF DISCHARGE. HOURLY ROUNDING WAS PERFORMED. PT WAS TURNED Q2HRS. DRESSING CHANGED TO SACRUM AND RIGHT OUTER CALF WITH WOUND NURSE TA PRIOR TO DC. PICTURES TAKEN AND IN THE CHART.
--- NOTE | 2017-10-30 17:05 | NUR ---
CAM SPECIALIST ACCIDENTALLY SENT TO THE FACILITY WITH THE PT. CALLED AND VERIFIED MONITOR'S LOCATION. WILL VARITYPE OPERATOR HEART MONITOR FROM THE [facility] AFTER SHIFT AND RETURN TO UNIT.
--- NOTE | 2017-11-15 20:10 | CON ---
[address] [address] CONSULTATION Name: VIJAYA HELMS Bianca Room: [address] [place] .R.#: [id number] Admission: 10/23/17 Attend Phys: Bryon Martinez MD Discharge: 10/30/17 Date of : [birth year] Report #: [id number] THIS REPORT FOR: //name// CC: Bryon Hennessy DATE OF SERVICE: 10/23/2017 HISTORY OF PRESENT ILLNESS: This is an 87-year-old female patient who was evaluated by me for altered mental status. This patient is unable to provide any history. Daughter is here. Daughter is durable power of commercial attorney. She indicates that this patient is in [facility]. It is mainly because of ambulation difficulty. She was okay on the [employer] democrat but yesterday they noticed that she had altered mental status. It came rather suddenly. She has multiple abnormalities. She has a very high white count, RBC is increased and her kidney function is markedly abnormal. GFR is only 13. She has been poorly responsive and lethargic. REVIEW OF SYSTEMS: Indicate that this patient has sepsis. She has what looks like urinary tract infection. She had a hip fracture in the past, which caused her ambulation difficulty. That was her relevant 14-point review of system. PAST MEDICAL HISTORY: Positive for ambulation difficulty because of hip problem. FAMILY HISTORY: Negative for early stage stroke. SOCIAL HISTORY: She lives in a [facility]. PHYSICAL EXAMINATION: NEUROLOGICAL: Indicate that she is sleepy. She wakes up. When she wakes up, she does not have much speech. She tries to follow commands. She has weakness on the right side of the face. She may be weak in the right upper extremity. That is the extent of neurological examination, she allows. I cannot tell about meningeal sign. RESPIRATORY: Appear noncontributory. VITAL SIGNS: Her blood pressure is 84/54, respiration is 38, pulse is 107 and temperature is 102. LABORATORY DATA: She did have a CT scan of the head, which was mostly unremarkable. IMPRESSION: This patient is septic and on top of that, she may have had a cerebrovascular accident. She may have even intracranial central [place] [address] CONSULTATION Name: VIJAYA HELMS Room: [address]#: [id number] Admission: 10/23/17 Attend Phys: Bryon Martinez MD Discharge: 10/30/17 Date of : [birth year] Report #: [id number] RECOMMENDATIONS: I had a long talk with the patient's daughter. I discussed with her the options. The family is very nice, but they request very conservative care. They do not want to proceed with MRI or a spinal tap in this patient. They want very conservative care and that is pretty reasonable in this patient. More than 35 minutes of time was spent taking care of this patient today and majority of that time was spent counseling the family and coordinating her care. At the end, it was decided that she is a DNR/DNI and they do not want any aggressive measure and just want very conservative measures and we will follow their wishes. We will sign off. Please call if there are any further questions or followup needed. Thank you very much for this referral. <ELECTRONICALLY SIGNED> By: Ramón Joyce MD 11/15/172009 [id number] Joyce MD /nt
== END 2017-10-30 12:15 | disposition hospice, home (50) | DRG 871 ==
LOC: M.ERS 07:07 → M.TBA-ER 09:37 → M.ICU 09:37 → M.2W 10-25 18:22
PROVIDERS: Emergency Medicine; Internal Medicine Nephrology; ADMIT Internal Medicine
PROC: 02HV33Z Insertion of Infusion Device into Superior Vena Cava, Percutaneous Approach (ICD-10-PCS; principal; 2017-10-23)
DX: A41.9 Sepsis, unspecified organism (principal); R65.21 Severe sepsis with septic shock; J96.00 Acute respiratory failure, unspecified whether with hypoxia or hypercapnia; N17.0 Acute kidney failure with tubular necrosis; G93.40 Encephalopathy, unspecified; J69.0 Pneumonitis due to inhalation of food and vomit; N12 Tubulo-interstitial nephritis, not specified as acute or chronic; A04.72 Enterocolitis due to Clostridium difficile, not specified as recurrent; E87.0 Hyperosmolality and hypernatremia; Z66 Do not resuscitate; I25.10 Atherosclerotic heart disease of native coronary artery without angina pectoris; M19.90 Unspecified osteoarthritis, unspecified site; I10 Essential (primary) hypertension; E87.6 Hypokalemia; E78.5 Hyperlipidemia, unspecified; Z95.1 Presence of aortocoronary bypass graft; Z90.49 Acquired absence of other specified parts of digestive tract; Z87.01 Personal history of pneumonia (recurrent); Z79.899 Other long term (current) drug therapy; Z79.82 Long term (current) use of aspirin; Z88.0 Allergy status to penicillin; Z88.2 Allergy status to sulfonamides; Z88.8 Allergy status to other drugs, medicaments and biological substances; Z88.1 Allergy status to other antibiotic agents; Z91.041 Radiographic dye allergy status